=== PATIENT | female | born 1965 | race Caucasian/White ===

== ENCOUNTER 2024-11-03 05:56 | Day surgery (SDC) | payer BC ==
[2024-11-03] MEDS ORDERED: ANESTHESIA TRAY IN PYXIS 1 EA TRAY MC ONE (06:30)
[2024-11-03] MEDS ORDERED: BUPIVACAINE 0.25% 75 MG/30 ML VIAL ONE (06:30)
[2024-11-03] MEDS ORDERED: FENTANYL PF 250MCG/5ML AMPUL ONE (06:51)
[2024-11-03] MEDS ORDERED: ROCURONIUM BROMIDE 50 MG/5 ML ONE (06:52)
== END 2024-11-03 11:00 | disposition home or self-care (01) ==
LOC: DS 05:56
PROVIDERS: ATTEND Orthopaedic Surgery
DX: S83.241A Other tear of medial meniscus, current injury, right knee, initial encounter (principal); M94.261 Chondromalacia, right knee; F32.9 Major depressive disorder, single episode, unspecified; Z79.899 Other long term (current) drug therapy; Z98.890 Other specified postprocedural states; Z82.49 Family history of ischemic heart disease and other diseases of the circulatory system; X58.XXXA Exposure to other specified factors, initial encounter; Y93.89 Activity, other specified; Y92.89 Other specified places as the place of occurrence of the external cause; Y99.8 Other external cause status
CPT/HCPCS: 29881; J0461; J2704; J3490 ×3; J7030; A6253; A4217; J3010